=== PATIENT | male | born 1990 | race African-American/Black ===

== ENCOUNTER 2024-05-17 19:02 | Emergency (ER) | payer MEDICARE, MEDICAID, SELFPAY ==
--- NOTE | ~2024-05-17 | XR_ITS ---
CLINICAL HISTORY: pain 1 view chest x-ray Comparison: None Findings: No consolidation, pneumothorax, or pleural effusion. Mild elevation of the left hemidiaphragm minimal left basilar atelectasis. Normal size heart. No acute fracture. IMPRESSION: No consolidation. This document has been electronically signed by: Yong Mueller MD on 05/17/2024 20:17:35
--- NOTE | 2024-05-17 19:06 | ECG_ITS ---
Test Reason : CHEST TIGHTNESS Blood Pressure : */* mmHG Vent. Rate : 93 BPM Atrial Rate : 93 BPM P-R Int : 150 ms QRS Dur : 84 ms QT Int : 358 ms P-R-T Axes : 43 15 31 degrees QTcB Int : 445 ms Normal sinus rhythm Normal ECG No previous ECGs available Referred By: Generic ED Physician Electronically Signed By: MARGAUX ALEGRIA
[2024-05-17 19:09] VITALS: BP 130/82; PULSE 110; O2SAT 98
--- NOTE | 2024-05-17 19:20 | MHC.EDTECH ---
Patient brought into triage area,EKG taken per order ,signed by provider
[2024-05-17 19:29] VITALS: BP 108/69; PULSE 99; RESP 18; TEMP 37; O2SAT 97; BMI 38.9
--- NOTE | 2024-05-17 19:32 | ED.GENADULT ---
HPI - General Adult General Chief complaint: General Medical Stated complaint: chest tightness Time Seen by Provider: 05/17/24 23:41 Source: patient, RN notes reviewed and old records reviewed Mode of arrival: EMS Limitations: no limitations History of Present Illness ED Provider: Trinidad PINK narrative: 34-year-old male presents for evaluation of chest pain. Patient reports that he has had intermittent chest pain for the last couple of days. He currently describes a tightness He has had intermittent cough for last few days pain He recently got out of ?lock up. ? He reports that he was not tested for the flu but was ?quarantine due to symptoms. ? He reports that he has leg pain, drainage from his feet He states that he feels dehydrated. Related Data Previous Rx's ?Medication ?Instructions ?Recorded butenafine 1 % topical cream 1 appl topical BID 1 week #30 grams 05/18/24 (Lotrimin Ultra) Allergies Allergy/AdvReac Type Severity Reaction Status Date / Time No Known Allergies Allergy Verified 05/17/24 19:32 [No Known Allergies*] Review of Systems Constitutional: Constitutional: Denies body ache(s), Denies chills, Denies fever(s) and Denies headache(s) Eyes: Eyes: Denies blurry vision ENT: Denies vertigo, Denies dizziness and Denies headache(s) Cardiovascular: Cardiovascular: Reports chest pain and Denies dyspnea Respiratory: Respiratory: Reports cough and Denies dyspnea Gastrointestinal: Gastrointestinal: Denies abdominal pain, Denies nausea and Denies vomiting Musculoskeletal: Musculoskeletal: Denies back pain Integumentary/Breasts: Skin/Breast: Reports rash Neurologic: Denies vertigo, Denies dizziness and Denies headache(s) Psychiatric: Psychiatric: Denies suicidal ideation [facility] Social History Social History Smoked in Last 30 Days: Yes Use of substances other than those prescribed or required for medical reasons: Yes Substance Use Type: Marijuana Advance Directives: No Advance Directives Information Provided: No Physical Exam ED Vital Signs: Vital Signs - 24 hr 05/17/24 19:29 05/17/24 23:37 Temperature 98.6 F 98.2 F Pulse Rate 99 98 Respiratory Rate 18 16 Blood Pressure 108/69 147/73 H Pulse Oximetry 97 100 Oxygen Delivery Method Room Air Room Air BMI result Body Mass Index 38.9 Const General: healthy appearing, comfortable, no acute distress, alert and awake Nutritional Appearance: well nourished Orientation/consciousness: patient oriented x3 HENMT Head: Yes normocephalic and Yes atraumatic Eyes Eyelids: Yes eyelids normal Conjunctivae: conjunctivae normal Sclerae: sclerae normal Corneas: corneas normal Pupils: Equal, round and reactive pupils present EOM: EOMs intact bilaterally Neck Neck: Yes full ROM Resp Effort & Inspection: normal respiratory effort, able to speak in complete sentences and not labored Cardio Rate: regular rate Rhythm: regular rhythm Skin Other: Faint erythema with whitish discharge between the toes on right foot. No open wounds, no significant edema. No calf tenderness bilaterally General skin exam: elasticity normal Neuro General: patient oriented x3 Cranial nerves: Yes Equal, round and reactive pupils present and Yes Bilaterally intact EOM present Cognition (Neuro): normal cognition Extrem Other: Moving all extremities well without any obvious deformities Course Course Course Narrative: This is a rapid medical exam performed by Kerline Thurman PA-C. 34-year-old male with a history of opiate use disorder on Suboxone, presents with intermittent chest tightness over the past few days. Patient states he has been off his Suboxone for a few days, because he ?did not have his ID to pick it up at the pharmacy?. We will be screening basic labs, troponin, EKG obtained, adding a chest x-ray. The patient is stable and can return to the waiting room pending his full medical assessment. Medical Decision Making Medical Decision Making MDM Narrative: 34-year-old male presents for evaluation of multiple complaints. His primary complaint is chest pain. He was for pain for a couple of days with associated cough. His EKG was a normal sinus rhythm, troponin resulted at 3.5. He rules out for ACS as he has had chest pain for 2 days with a non ischemic EKG and a normal troponin. Chest x-ray is clear without infiltrates or effusions. The patient declined viral testing. His symptoms have been present for over 2 days so he would not qualify for Tamiflu treatment regardless of the outcome of the flu swab. I asked the patient what we could do for him today and he states ?get me somewhere where I can get better. ? I explained to the patient that he does not have any cardiac issues, his lungs are clear. He may or may not have the flu, but he would not require admission for that. I offered to treat his athlete's foot. The patient became upset with his care. I tried to understand what the patient wanted to be done differently from this visit and he just states ?a black man can't get no help around here. He reported that he was concerned about losing his feet because his mother was a diabetic. I explained to the patient that nothing in his labs indicate that he is a diabetic but he should follow up with outpatient providers. Differential Diagnosis Differential Diagnoses: The differential diagnosis associated with the presentation includes Chest pain ACS Bronchitis Pneumonia Influenza Tinea pedis Lab Data MDM Lab Attestation statement: I reviewed the patient's lab results. No leukocytosis or significant anemia. Normal platelet count. No significant electrolyte abnormalities warranting intervention. Troponin within normal limits. 05/17/24 19:44 05/17/24 19:44 Labs: Lab Results 05/17/24 Range/Units 19:44 WBC 7.3 (4.8-10.8) X10*3/uL RBC 4.81 (4.60-5.80) X10*6/uL Hgb 14.2 (14.0-18.0) g/dl Hct 40.8 L (42.0-52.0) % MCV 84.8 (80.0-98.0) fL MCH 29.5 (27.0-33.0) pg MCHC 34.8 (31.0-36.0) g/dl RDW 13.2 (11.0-16.0) % Plt Count 211 (160-400) X10*3/uL MPV 9.8 (9.4-12.4) fL Immature Gran % (Auto) 0.3 (0.0-0.4) % Neut % (Auto) 57.7 (45-73) % Lymph % (Auto) 33.6 (20-40) % [place] % (Auto) 7.3 (2-11) % Eos % (Auto) 0.3 (0-4) % Baso % (Auto) 0.8 (0-2) % Lymph # (Auto) 2.4 (1.2-4.9) X10*3/uL [place] # (Auto) 0.5 (0.1-1.2) X10*3/uL Eos # (Auto) 0.0 (0.0-0.4) X10*3/uL Baso # (Auto) 0.1 (0.0-0.2) X10*3/uL Abs Immat Gran (auto) 0.02 (0.00-0.03) X10*3/uL Absolute Neuts (auto) 4.2 (2.0-8.3) x10*3/uL Absolute Nucleated RBC 0.000 (0.0-0.012) X10*3/uL Nucleated RBC % (auto) 0.0 (0.0-0.2) /100WBC Sodium 137 (135-145) mmol/L Potassium 3.8 (3.3-5.1) mmol/L Chloride 106 (96-108) mmol/L Carbon Dioxide 21 L (22-29) mmol/L Anion Gap 14 (12-20) BUN 12 (9-16) mg/dL Creatinine 0.90 (0.5-1.4) mg/dL Estim Creat Clear Calc 181.8 Estimated GFR > 60 Random Glucose 90 (60-115) mg/dL Calcium 9.2 (8.4-10.2) mg/dL Magnesium 2.0 (1.6-2.6) mg/dL Total Bilirubin 0.7 (0.0-1.0) mg/dL AST 71 H (5-37) U/L ALT 34 (0-40) U/L Alkaline Phosphatase 81 (39-117) U/L Troponin I High Sens 3.5 (<3.5-35.0) ng/L Total Protein 7.7 (6.5-8.0) g/dL Albumin 4.1 (3.5-5.0) g/dL Ethyl Alcohol 17 mg/dL Discharge Plan Discharge Clinical Impression: Chest pain Patient Disposition: Home, Self-Care Instructions: Chest Pain (ED) Additional Instructions: Your workup in the ER today was reassuring. This includes your blood work, chest x-ray, EKG You appear to have a fungal infection between her toes called athlete's foot You may use the antifungal cream as prescribed Prescriptions: New butenafine [Lotrimin Ultra] 1 % cream 1 appl topical BID 7 Days Qty: 30 0RF Print Language: Bolivian
--- NOTE | 2024-05-17 19:44 | MHC.EDTECH ---
Patient brought into triage area,labs drawn and sent to lab.
[2024-05-17 19:46] LABS: MANUAL DIFF FLAG NO
[2024-05-17 19:47] LABS: Basophils Absolute Auto 0.1 X10*3/uL (0.0-0.2); Basophils Percent Auto 0.8 % (0-2); Eosinophils Percent Auto 0.3 % (0-4); Hematocrit 40.8 % (42.0-52.0); Hemoglobin 14.2 g/dl (14.0-18.0); Imm Gran Abs Auto 0.02 X10*3/uL (0.00-0.03); Imm Gran Pct Auto 0.3 % (0.0-0.4); Lymphocytes Absolute Auto 2.4 X10*3/uL (1.2-4.9); Lymphocytes Percent Auto 33.6 % (20-40); Mean Corpuscular HGB Conc 34.8 g/dl (31.0-36.0); Mean Corpuscular Hemoglobin 29.5 pg (27.0-33.0); Mean Corpuscular Volume 84.8 fL (80.0-98.0); Mean Platelet Volume 9.8 fL (9.4-12.4); Monocytes Absolute Auto 0.5 X10*3/uL (0.1-1.2); Monocytes Percent Auto 7.3 % (2-11); Neutrophils Absolute Auto 4.2 x10*3/uL (2.0-8.3); Neutrophils Percent Auto 57.7 % (45-73); Platelet Count 211 X10*3/uL (160-400); Red Blood Count 4.81 X10*6/uL (4.60-5.80); Red Cell Distribution Width 13.2 % (11.0-16.0); White Blood Count 7.3 X10*3/uL (4.8-10.8)
[2024-05-17 20:01] LABS: Albumin Level 4.1 g/dL (3.5-5.0); Anion Gap 14 (12-20); Aspartate Amino Transferase 71 U/L (5-37); Bilirubin Total 0.7 mg/dL (0.0-1.0); Blood Urea Nitrogen 12 mg/dL (9-16); Calcium 9.2 mg/dL (8.4-10.2); Carbon Dioxide 21 mmol/L (22-29); Chloride 106 mmol/L (96-108); Creatinine Clr Calc Pharmacy 181.8; Estimated Glomerular Filt Rate > 60; Glucose Random 90 mg/dL (60-115); Potassium 3.8 mmol/L (3.3-5.1); Sodium 137 mmol/L (135-145); Total Protein 7.7 g/dL (6.5-8.0)
[2024-05-17 20:07] LABS: Troponin-I High Sensitivity 3.5 ng/L (<3.5-35.0)
[2024-05-17 20:13] LABS: Alanine Aminotransferase 34 U/L (0-40); Alkaline Phosphatase 81 U/L (39-117)
[2024-05-17 23:37] VITALS: BP 147/73; PULSE 98; RESP 16; TEMP 36.8; O2SAT 100
[2024-05-18 00:43] LABS: Ethanol 17 mg/dL
[2024-05-18 01:28] VITALS: BP 147/73; PULSE 98; RESP 16; TEMP 36.8; O2SAT 100
== END 2024-05-18 01:29 | disposition home or self-care (01) ==
PROVIDERS: Physician Assistant Medical; Emergency Provider Internal Medicine
DX: R07.89 Other chest pain (principal); E86.0 Dehydration; R05.9 Cough, unspecified; Z51.81 Encounter for therapeutic drug level monitoring; Z79.899 Other long term (current) drug therapy
CPT/HCPCS: 36415; 71045; 80053; 80307; 83735; 84484; 85025; 93005; 99283; 99284

== ENCOUNTER → 2024-05-17 19:06 | Outpatient (BNV) | payer MEDICARE, MEDICAID, SELFPAY | PROVIDERS: Emergency Provider Internal Medicine; Visit Provider Internal Medicine | DX: R07.89 Other chest pain (principal) | CPT/HCPCS: 93010 ==

== ENCOUNTER → 2024-05-17 19:29 | Outpatient (BNV) | payer MEDICARE, MEDICAID, SELFPAY | PROVIDERS: Visit Provider Radiology Neuroradiology | DX: R07.9 Chest pain, unspecified (principal) | CPT/HCPCS: 71045 ==

== ENCOUNTER 2024-08-24 02:29 | Emergency (ER) | payer OTHER, MEDICAID, SELFPAY ==
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
[2024-08-24 02:53] VITALS: BP 150/90; PULSE 115; RESP 18; O2SAT 99; BMI 41.7
[2024-08-24] MEDS: LORazepam 1 MG TABLET 2 MG PO (04:07)
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
[2024-08-24 07:19] VITALS: RESP 20
--- NOTE | 2024-08-24 07:19 | PC.NURSE ---
Addendum entered by Cielo Spear RN 08/24/24 07:20: pt will also be medicated when he wakes. Original Note: pt currently sleeping, rr equal/non labored, due to situational problems when pt arrived on last shift pt continues to need blood/urine. will attempt to get these after patient wakes.
--- NOTE | 2024-08-24 09:22 | PC.NURSE ---
provider came over to see patient with care team, provider went to see the patient and stated he is currently sleeping and to let him sleep. this nurse is not medicating the patient until he wakes
[2024-08-24] MEDS: lamoTRIgine 25 MG TABLET 50 MG PO (11:48)
[2024-08-24] MEDS: Buprenorphine HCL 8 MG TAB.SUBL SUBLINGUAL (11:48)
[2024-08-24] MEDS: Lurasidone HCl 20 MG TABLET 60 MG PO (11:48)
--- NOTE | 2024-08-24 11:49 | PC.NURSE ---
pt willingly took medications as ordered once he woke, care team re-evaluated and pt to discharge
[2024-08-24] MEDS: Nicotine Polacrilex Lozenge 4 MG LOZENGE BUCCAL (11:53)
[2024-08-24 12:37] VITALS: BP 148/73; PULSE 98; RESP 18; TEMP 36.6; O2SAT 99
--- NOTE | 2024-08-24 12:39 | MHC.CARE ---
Pt does not meet the criteria for a higher level of care and will D/C to follow up with current providers. ED provider in agreement.
== END 2024-08-24 12:38 | disposition home or self-care (01) ==
PROVIDERS: Emergency Provider Emergency Medicine
DX: F10.920 Alcohol use, unspecified with intoxication, uncomplicated (principal); Y90.9 Presence of alcohol in blood, level not specified; R45.1 Restlessness and agitation; R45.851 Suicidal ideations; R00.0 Tachycardia, unspecified; F31.9 Bipolar disorder, unspecified; F43.10 Post-traumatic stress disorder, unspecified; F12.90 Cannabis use, unspecified, uncomplicated; F11.20 Opioid dependence, uncomplicated; Z79.899 Other long term (current) drug therapy
CPT/HCPCS: 99284; J0571; S9485